=== PATIENT | male | born 1980 | race Caucasian/White ===

== ENCOUNTER 2017-09-09 13:04 | Observation (INO) ==
[2017-09-09 13:55] LABS: Basophils % 0.2 %; Eosinophils # 0.2 K/mcL (0.0-0.6); Eosinophils % 1.7 %; Hematocrit 39.3 % (37.5-50.1); Hemoglobin 12.6 g/dL (12.9-16.9); Immature Granulocytes % 0.3 % (0-4); Lymphocytes # 2.1 K/mcL (0.6-4.6); Lymphocytes % 22.8 %; Mean Corpuscular HGB Conc 32.1 g/dL (31.6-35.5); Mean Corpuscular Hemoglobin 29.4 pg (28.0-33.3); Mean Corpuscular Volume 91.8 fL (83.0-100.0); Mean Platelet Volume 11.1 fL (9.4-12.4); Monocytes # 0.8 K/mcL (0.0-1.3); Monocytes % 8.5 %; Neutrophils # 6.2 K/mcL (1.6-8.9); Platelet Count 234 K/mcL (140-400); Red Blood Count 4.28 M/mcL (4.19-5.50); Red Cell Distribution Width 13.2 % (11.5-14.5); Segmented Neutrophils % 66.5 %
[2017-09-09 14:11] LABS: Alanine Aminotransferase 20 Units/L (0-55); Albumin 3.8 g/dL (3.5-5.0); Albumin/Globulin Ratio 1.1 (1.1-2.2); Alkaline Phosphatase 79 Units/L (38-126); Aspartate Amino Transferase 18 Units/L (5-34); BUN/Creatinine Ratio 26 (6-26); Bilirubin,Direct 0.1 mg/dL (0.0-0.5); Bilirubin,Indirect 0.3 mg/dL (0.0-1.2); Bilirubin,Total 0.4 mg/dL (0.2-1.2); Blood Urea Nitrogen 19 mg/dL (8-26); Calcium 9.3 mg/dL (8.6-10.8); Carbon Dioxide 32 mEq/L (19-29); Chloride 98 mEq/L (98-109); Globulin 3.6 g/dL (2.4-3.5); Glucose 102 mg/dL (70-99); Lipase < 10 Units/L (8-78); Osmolality,Calculated 286 (280-300); Potassium 4.1 mEq/L (3.5-4.5); Sodium 137 mEq/L (136-145); Total Protein 7.4 g/dL (6.0-8.3); eGFR For African Americans > 60 (> 60); eGFR For Non-African Americans > 60 (> 60)
[2017-09-09 15:23] LABS: INR 1.1; Prothrombin Time 11.7 Seconds (9.4-12.1)
[2017-09-09] MEDS ORDERED: Pantoprazole 40 MG VIAL IVP ONE (15:24)
--- NOTE | 2017-09-09 15:25 | Emergency Department Note ---
Disposition Clinical Impression: GI bleed Qualifiers: GI bleed type/associated pathology: unspecified gastrointestinal hemorrhage type Qualified Code(s): K92.2 - Gastrointestinal hemorrhage, unspecified Disposition: Admitted As Inpatient Condition: Fair Referrals: NONE,PCP [Primary Care Provider] - Forms: ED Satisfaction Letter Time of Disposition: 17:51 GI Bleed HPI - General Chief complaint: ED GI Bleed Stated complaint: bloody stool/vomit Time Seen by Provider: 09/09/17 15:05 Source: patient Mode of arrival: ambulatory Limitations: no limitations Nursing Notes Reviewed: Yes Vital Signs Reviewed: Yes - History of Present Illness HPI Narrative: 37-year-old male who awoke about 2 AM with the rectal bleeding. He also vomited blood a couple of times. Patient states he has a history of ulcers. Does have chronic back pain however is not on NSAIDs. He denies any liver disease and denies alcohol intake. Pt Subjective Complaint: blood streaked emesis, gross hematochezia Onset (ago): hour(s) Consistency: intermittent Improves with: nothing Worsens with: nothing Associated symptoms: Reports: abdominal pain, vomiting Treatments Prior to Arrival: none - Related Data Home Medications Medication Instructions Recorded Confirmed Gabapentin [Neurontin] 300 mg PO TID 09/09/17 09/09/17 Lisinopril [Zestril] 20 mg PO DAILY 09/09/17 09/09/17 Meloxicam [Meloxicam] 15 mg PO HS PRN 09/09/17 09/09/17 Tizanidine HCl 4 mg PO TID PRN 09/09/17 09/09/17 Tramadol HCl [Ultram] 50 mg PO TID PRN 09/09/17 09/09/17 Allergies Allergy/AdvReac Type Severity Reaction Status Date / Time No Known Allergies Allergy Verified 05/07/15 19:13 All systems ED: reviewed and negative except as stated. Constitutional: Denies: fever, chills, weakness, weight change Eyes: Denies: eye pain, eye discharge, vision change ENT ED: Denies: ear pain, throat pain, dental pain, hearing loss, epistaxis, congestion, dysphagia Cardiovascular: Denies: chest pain, palpitations, dyspnea on exertion, edema, syncope Respiratory: Denies: cough, dyspnea, wheezes, hemoptysis, stridor Gastrointestinal: Reports: abdominal pain, hematemesis, hematochezia. Denies: nausea, vomiting, diarrhea, constipation, melena Genitourinary: Denies: urgency, dysuria, frequency, hematuria Musculoskeletal: Denies: back pain, neck pain, arthralgia, myalgia Integumentary: Denies: rash, abrasion, lesions Neurological: Denies: headache, weakness, numbness, paresthesias, confusion, abnormal gait, vertigo Psychiatric: Denies: anxiety, depression, suicidal thoughts, homicidal thoughts , auditory hallucinations, visual hallucinations Endocrine: Denies: fatigue Hematological/Lymphatic: Denies: easy bleeding, easy bruising Allergic/Immunologic: Denies: facial swelling, urticaria Past Medical History - Past Medical History Medical history: Reports: hypertension Psychiatric history: Reports: anxiety - Social History Smoking Status: Never smoker Alcohol use: Reports: occasionally Drug use: Reports: other Physical Exam - General Limitations: no limitations General appearance: alert, in no apparent distress - Head Head exam: atraumatic, normocephalic, normal inspection - Eye Eye exam: Present: normal appearance - ENT ENT exam: normal exam, normal oropharynx, mucous membranes moist - Neck Neck exam: Present: normal inspection, full ROM, trachea midline - Chest Chest inspection: Present: normal inspection, symmetric chest wall rise - Respiratory Respiratory exam: Present: normal lung sounds bilaterally - Cardiovascular Cardiovascular exam: Present: regular rate, normal rhythm, normal heart sounds - Abdominal Exam Abdominal exam: Present: soft, tenderness. 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 Absent: tenderness, pedal edema - Expanded Lower Extremity Exam Neurovascular/Tendon exam: Absent: motor deficit, sensory deficit, tendon deficit Gait: observed and normal - Back Exam Back exam: Present: normal inspection, full ROM. Absent: tenderness - Neurological Exam Neurological exam: Present: alert, oriented X3 - Psychiatric Psychiatric exam: Present: normal affect, normal mood - Skin Skin exam: Present: warm, dry, intact, normal color Course - Reevaluation(s) Reevaluation #1: 37-year-old with gross rectal bleeding says he was vomiting blood. Has had ulcers in the past. Time: 17:49 - Consultations Consultation #1: Stressed with Sourav HODGE, ADMIT. Time: 17:48 Consultation #2: Discussed with the GI Dr. Villanueva will see the patient in consultation. Time: 17:50 Vital Signs Temperature 97.5 F L 09/09/17 13:14 Pulse Rate 107 09/09/17 13:14 Respiratory Rate 18 09/09/17 13:14 Blood Pressure 158/114 09/09/17 13:14 O2 Sat by Pulse Oximetry 99 09/09/17 13:14 Temperature 97.5 F L 09/09/17 13:14 Pulse Rate 107 09/09/17 13:14 Respiratory Rate 18 09/09/17 13:14 Blood Pressure 158/114 09/09/17 13:14 O2 Sat by Pulse Oximetry 99 09/09/17 13:14 Oxygen Delivery Oxygen Delivery Room Air GI Bleed - Lab Data Lab results reviewed: Yes I reviewed the patient's lab results. Result diagrams: 09/09/17 13:41 09/09/17 13:41 Lab Results 09/09/17 09/09/17 09/09/17 Range/Units 13:41 13:41 13:41 WBC 9.3 (4.3-11.1) K/mcL RBC 4.28 (4.19-5.50) M/mcL Hgb 12.6 L (12.9-16.9) g/dL Hct 39.3 (37.5-50.1) % MCV 91.8 (83.0-100.0) fL MCH 29.4 (28.0-33.3) pg MCHC 32.1 (31.6-35.5) g/dL RDW 13.2 (11.5-14.5) % Plt Count 234 (140-400) K/mcL MPV 11.1 (9.4-12.4) fL Immature Gran % 0.3 (0-4) % Seg Neutrophils % 66.5 % Lymphocytes % 22.8 % Monocytes % 8.5 % Eosinophils % 1.7 % Basophils % 0.2 % Neutrophils # 6.2 (1.6-8.9) K/mcL Lymphocytes # 2.1 (0.6-4.6) K/mcL Monocytes # 0.8 (0.0-1.3) K/mcL Eosinophils # 0.2 (0.0-0.6) K/mcL Basophils # 0.0 (0.0-0.2) K/mcL ESR (0-10) mm/hr PT (9.4-12.1) Seconds INR APTT (26.0-36.0) Seconds Sodium 137 (136-145) mEq/L Potassium 4.1 (3.5-4.5) mEq/L Chloride 98 (98-109) mEq/L Carbon Dioxide 32 H (19-29) mEq/L BUN 19 (8-26) mg/dL Creatinine 0.73 (0.72-1.25) mg/dL Est GFR ( Amer) > 60 (> 60) Est GFR (Non-Af Amer) > 60 (> 60) BUN/Creatinine Ratio 26 (6-26) Glucose 102 H (70-99) mg/dL Calculated Osmolality 286 (280-300) Calcium 9.3 (8.6-10.8) mg/dL Total Bilirubin 0.4 (0.2-1.2) mg/dL Direct Bilirubin 0.1 (0.0-0.5) mg/dL Indirect Bilirubin 0.3 (0.0-1.2) mg/dL AST 18 (5-34) Units/L ALT 20 (0-55) Units/L Alkaline Phosphatase 79 (38-126) Units/L Troponin I (0-0.03) ng/mL Serum Total Protein 7.4 (6.0-8.3) g/dL Albumin 3.8 (3.5-5.0) g/dL Globulin 3.6 H (2.4-3.5) g/dL Albumin/Globulin Ratio 1.1 (1.1-2.2) Lipase < 10 (8-78) Units/L Stool Occult Blood (Negative) Blood Type O POSITIVE Antibody Screen NEGATIVE 09/09/17 09/09/17 09/09/17 Range/Units 13:41 13:41 13:41 WBC (4.3-11.1) K/mcL RBC (4.19-5.50) M/mcL Hgb (12.9-16.9) g/dL Hct (37.5-50.1) % MCV (83.0-100.0) fL MCH (28.0-33.3) pg MCHC (31.6-35.5) g/dL RDW (11.5-14.5) % Plt Count (140-400) K/mcL MPV (9.4-12.4) fL Immature Gran % (0-4) % Seg Neutrophils % % Lymphocytes % % Monocytes % % Eosinophils % % Basophils % % Neutrophils # (1.6-8.9) K/mcL Lymphocytes # (0.6-4.6) K/mcL Monocytes # (0.0-1.3) K/mcL Eosinophils # (0.0-0.6) K/mcL Basophils # (0.0-0.2) K/mcL ESR 28 H (0-10) mm/hr PT 11.7 (9.4-12.1) Seconds INR 1.1 APTT 28.7 (26.0-36.0) Seconds Sodium (136-145) mEq/L Potassium (3.5-4.5) mEq/L Chloride (98-109) mEq/L Carbon Dioxide (19-29) mEq/L BUN (8-26) mg/dL Creatinine (0.72-1.25) mg/dL Est GFR ( Amer) (> 60) Est GFR (Non-Af Amer) (> 60) BUN/Creatinine Ratio (6-26) Glucose (70-99) mg/dL Calculated Osmolality (280-300) Calcium (8.6-10.8) mg/dL Total Bilirubin (0.2-1.2) mg/dL Direct Bilirubin (0.0-0.5) mg/dL Indirect Bilirubin (0.0-1.2) mg/dL AST (5-34) Units/L ALT (0-55) Units/L Alkaline Phosphatase (38-126) Units/L Troponin I 0.00 (0-0.03) ng/mL Serum Total Protein (6.0-8.3) g/dL Albumin (3.5-5.0) g/dL Globulin (2.4-3.5) g/dL Albumin/Globulin Ratio (1.1-2.2) Lipase (8-78) Units/L Stool Occult Blood (Negative) Blood Type Antibody Screen 09/09/17 Range/Units 15:20 WBC (4.3-11.1) K/mcL RBC (4.19-5.50) M/mcL Hgb (12.9-16.9) g/dL Hct (37.5-50.1) % MCV (83.0-100.0) fL MCH (28.0-33.3) pg MCHC (31.6-35.5) g/dL RDW (11.5-14.5) % Plt Count (140-400) K/mcL MPV (9.4-12.4) fL Immature Gran % (0-4) % Seg Neutrophils % % Lymphocytes % % Monocytes % % Eosinophils % % Basophils % % Neutrophils # (1.6-8.9) K/mcL Lymphocytes # (0.6-4.6) K/mcL Monocytes # (0.0-1.3) K/mcL Eosinophils # (0.0-0.6) K/mcL Basophils # (0.0-0.2) K/mcL ESR (0-10) mm/hr PT (9.4-12.1) Seconds INR APTT (26.0-36.0) Seconds Sodium (136-145) mEq/L Potassium (3.5-4.5) mEq/L Chloride (98-109) mEq/L Carbon Dioxide (19-29) mEq/L BUN (8-26) mg/dL Creatinine (0.72-1.25) mg/dL Est GFR ( Amer) (> 60) Est GFR (Non-Af Amer) (> 60) BUN/Creatinine Ratio (6-26) Glucose (70-99) mg/dL Calculated Osmolality (280-300) Calcium (8.6-10.8) mg/dL Total Bilirubin (0.2-1.2) mg/dL Direct Bilirubin (0.0-0.5) mg/dL Indirect Bilirubin (0.0-1.2) mg/dL AST (5-34) Units/L ALT (0-55) Units/L Alkaline Phosphatase (38-126) Units/L Troponin I (0-0.03) ng/mL Serum Total Protein (6.0-8.3) g/dL Albumin (3.5-5.0) g/dL Globulin (2.4-3.5) g/dL Albumin/Globulin Ratio (1.1-2.2) Lipase (8-78) Units/L Stool Occult Blood Positive A (Negative) Blood Type Antibody Screen - Radiology Data Radiology results reviewed: Yes I reviewed the patient's radiology results. Abdomen/Pelvis CT 09/09/17 15:22 IMPRESSION: No acute abnormality. Degenerative change lower lumbar spine L4-5 and L5-S1 with mild to moderate effect upon the right L4 and L5 foramen respectively. D/ / Dwayne Le MD / Dwayne Le MD Interpreting Provider: Dwayne Le MD
[2017-09-09 15:26] LABS: Activated Partial Thrombo Time 28.7 Seconds (26.0-36.0)
[2017-09-09] MEDS ORDERED: Aspirin 81 MG TAB.CHEW ONE (15:29)
[2017-09-09] MEDS ORDERED: *HR* HYDROmorphone (PF) 1 MG/ML SYRINGE IVP ONE (16:13)
[2017-09-09] MEDS ORDERED: Ondansetron 4 MG/2 ML VIAL IVP ONE (16:13)
[2017-09-09] MEDS ORDERED: Acetaminophen 325 MG TABLET PO PRN (23:13)
[2017-09-09] MEDS ORDERED: Naloxone 0.4 MG/ML INJ IVP PRN (23:13)
--- NOTE | 2017-09-09 23:23 | Internal Med History&Physical ---
Date of Encounter: 09/10/17 Time of Encounter: 23:22 Assessment and Plan (1) GI bleed Current visit: Yes Status: Acute Patient has presented with hematochezia and hematemesis, he has history of peptic ulcer disease, currently he uses heavy dose of NSAIDs. Nothing by mouth, H&H every 6, CBC CMP in the morning, GI consult IV fluids, Protonix drip, Concerned if recent use of NSAIDs and history of peptic ulcer has caused actively bleeding ulcer. Qualifiers: GI bleed type/associated pathology: unspecified gastrointestinal hemorrhage type Qualified Code(s): K92.2 - Gastrointestinal hemorrhage, unspecified (2) Peptic ulcer disease Current visit: Yes Status: Acute As above (3) Chronic pain Current visit: Yes Status: Acute As above Qualifiers: Chronic pain type: chronic pain syndrome Qualified Code(s): G89.4 - Chronic pain syndrome (4) Hypertension Current visit: Yes Status: Acute For now blood pressure medicines on hold Qualifiers: Hypertension type: essential hypertension Qualified Code(s): I10 - Essential (primary) hypertension Internal Medicine - H&P: HPI Chief complaint: Hematemesis hematochezia Admitted From: Home Plans for Post Hospital Care: Home History of present illness: Patient was seen on September 09. Mr. Karimi is a 37 year old male past medical history significant for chronic back pain and hypertension. He has history of peptic ulcer disease. His monthly was prescribed 800 mg Motrin 3 times a day most of which she has finished but recently he is not taking any NSAIDs. He uses meloxicam and Ultram for pain.. He has come in with the hematemesis and hematochezia with abdominal discomfort. He had single episode of blood-tinged vomiting as well as to lose bowel movement with blood in it. He denies any significant abdominal pain nausea or chest pain dyspnea dizziness syncope or any other symptoms. Past Med Surg Social Fam HX - Past Medical History Medical history: hypertension Psychiatric history: anxiety - Social History Smoking Status: Never smoker Alcohol use: occasionally Drug use: other - Family History Mother Living Status: Age at : 28 Cause of : suicide Father Living Status: Age at : 66 Cause of : unknown Internal Medicine - H&P: Meds Gabapentin [Neurontin] 300 mg PO TID 09/09/17 [History] Lisinopril [Zestril] 20 mg PO DAILY 09/09/17 [History] Meloxicam [Meloxicam] 15 mg PO HS PRN 09/09/17 [History] Tizanidine HCl 4 mg PO TID PRN 09/09/17 [History] Tramadol HCl [Ultram] 50 mg PO TID PRN 09/09/17 [History] 3 Allergy/AdvReac Type Severity Reaction Status Date / Time No Known Allergies Allergy Verified 05/07/15 19:13 All Systems PM: A 10-system review of systems was performed and is negative for pertinent findings except as documented above in the HPI. - Constitutional Constitutional: no chills, no fever(s), no night sweats - EENT Eyes: no change in vision, no discharge, no pain, no photophobia Ears: no ear discharge, no ear pain, no tinnitus Nose, mouth and throat: no dysphagia, no nasal discharge, no neck pain, no sore throat - Cardiovascular Cardiovascular ROS IM: no chest pain, no diaphoresis, no dyspnea, no lightheadedness, no palpitations, no syncope - Respiratory Respiratory: no cough, no dyspnea, no wheezing, no excessive phlegm production - Gastrointestinal Gastrointestinal: abdominal pain, diarrhea, hematemesis, hematochezia, nausea, vomiting, no melena - Musculoskeletal Musculoskeletal ROS IM: no numbness, no tingling - Integumentary Integumentary IM: no rash, no unusual bruising - Neurological Neurological ROS: no confusion, no convulsions, no focal weakness, no numbness, no tingling, no tremor(s) - Hematologic/Lymphatic Hematologic/Lymphatic: no easy bruising - Constitutional Vitals: Temp Pulse Resp BP Pulse Ox 97.7 F 87 14 141/104 94 09/09/17 19:41 09/09/17 19:41 09/09/17 19:44 09/09/17 19:44 09/09/17 19:41 General appearance: Present: A&O X 3, no acute distress, answers questions appropriately - Head Head exam: Present: atraumatic, normocephalic - Eye Eye exam: Present: PERRL, conjuntiva pink, sclera anicteric Pupils: Present: PERRL - Neck Neck exam general surgery: Present: supple, trachea midline. Absent: lymphadenopathy - Respiratory Respiratory exam: Present: CTAB. Absent: accessory muscle use, rales, rhonchi, wheezes - Cardiovascular Cardiovascular exam: Present: RRR, +S1, +S2. Absent: diastolic murmur, gallop, rubs, systolic murmur - GI/Abdominal GI/Abdominal exam: Present: normal bowel sounds, soft, no peritoneal signs. Absent: distended, tenderness - Extremities Exam Extremities exam: Present: warm, radial pulses palpable and symmetrical. Absent : calf tenderness, cyanotic, pedal edema - Neurological Exam Neurological exam: Present: CN II-XII intact, oriented X3, no focal deficits. Absent: pronater drift, facial droop, speech deficit - Skin Skin exam: Present: dry, intact Internal Med - H&P Results - Labs CBC & Chem 7: 09/10/17 00:13 09/09/17 13:41
[2017-09-10] MEDS: 0.9 % Sodium Chloride 1,000 ML IVC SCH ×2 (00:42→10:32)
[2017-09-10] MEDS: Pantoprazole 80 MG in 0.9 % Sodium Chloride 250 ML IVC SCH ×3 (00:43→22:47)
[2017-09-10] MEDS: *HR* Morphine 2 MG/ML SYRINGE IVP PRN ×3 (00:49→22:30)
[2017-09-10] MEDS: Ondansetron 4 MG/2 ML VIAL IVP SCH ×2 (00:55→06:16)
[2017-09-10] MEDS: Gabapentin 300 MG CAPSULE PO SCH ×4 (00:55→20:30)
[2017-09-10 01:02] LABS: Hematocrit 37.8 % (37.5-50.1); Hemoglobin 12.4 g/dL (12.9-16.9)
[2017-09-10 06:54] LABS: Hematocrit 34.4 % (37.5-50.1)
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
[2017-09-10] MEDS ORDERED: Ondansetron 4 MG/2 ML VIAL IVP PRN (08:49)
--- NOTE | 2017-09-10 09:47 | Internal Med Progress Note ---
Date of Encounter: 09/10/17 Time of Encounter: 09:45 - Assessment and plan (1) GI bleed Current Visit: Yes Status: Acute Assessment and plan: presented with hematemesis and melena; Hb stable; continue to monitor closely; IV hydration, bowel rest; GI consulted, plan for EGD today; patient has h/o- NSAID use for chronic back pain; continue IV PPI drip; hold NSAIDs and ASA; Qualifiers: GI bleed type/associated pathology: gastrointestinal hemorrhage with hematemesis Qualified Code(s): K92.0 - Hematemesis (2) Tobacco abuse Current Visit: Yes Status: Chronic Assessment and plan: Smoking cessation advised; (3) Chronic pain Current Visit: Yes Status: Chronic Assessment and plan: on PRN IV Morphine; will resume home meds when tolerates oral diet; Qualifiers: Chronic pain type: chronic pain syndrome Qualified Code(s): G89.4 - Chronic pain syndrome (4) Hypertension Current Visit: Yes Status: Chronic Assessment and plan: BP well-controlled; continue home meds as needed; Qualifiers: Hypertension type: essential hypertension Qualified Code(s): I10 - Essential (primary) hypertension - Subjective Interval history: Reports feeling better; resolved hematemesis, hematochezia at this time; did vomit blood and have 2-3 dark purple/maroon bowel movements prior to presentation; takes NSAIDs for chronic back pain; and follows with pain management clinic; - Constitutional Vitals: Temp Pulse Resp BP Pulse Ox 97.8 F 83 16 103/61 94 09/10/17 07:02 09/10/17 07:02 09/10/17 07:02 09/10/17 07:02 09/10/17 07:02 General appearance: Present: A&O X 3, no acute distress, answers questions appropriately - Respiratory Respiratory exam: Present: CTAB. Absent: accessory muscle use, rales, rhonchi, wheezes - Cardiovascular Cardiovascular exam: Present: RRR, +S1, +S2. Absent: diastolic murmur, gallop, rubs, systolic murmur - GI/Abdominal GI/Abdominal exam: Present: normal bowel sounds, soft, no peritoneal signs. Absent: distended, tenderness Internal Medicine: Result - Labs CBC & Chem 7: 09/10/17 11:16 09/09/17 13:41 Labs: Short CBC 09/10/17 09/10/17 Range/Units 00:13 05:33 Hgb 12.4 L 11.0 L (12.9-16.9) g/dL Hct 37.8 34.4 L (37.5-50.1) % - ABG Interpretation ABG results: PT/INR, D-dimer PT 11.7 Seconds (9.4-12.1) 09/09/17 13:41 - VTE Documentation of Mechanical Device: Graduated compression elastic hosiery Consult Discharge Plan - Plan Referrals: NONE,PCP [Primary Care Provider] -
--- NOTE | 2017-09-10 10:46 | Anesthesia Evaluation PreOp ---
Date of Encounter: 09/10/17 Time of Encounter: 13:32 - Past History Planned Operation: EGD Cardiac History: HTN Pulmonary History: Denies Any Significant HX FINANCE DIRECTOR History: Denies Any Significant HX Other Medical History: Other (PUD,) Anesthesia History: Past Anesthesia (none) Alcohol Use: occasionally Drug use: other Medications and Allergies Gabapentin [Neurontin] 300 mg PO TID 09/09/17 [History] Lisinopril [Zestril] 20 mg PO DAILY 09/09/17 [History] Meloxicam [Meloxicam] 15 mg PO HS PRN 09/09/17 [History] Tizanidine HCl 4 mg PO TID PRN 09/09/17 [History] Tramadol HCl [Ultram] 50 mg PO TID PRN 09/09/17 [History] 3 Allergy/AdvReac Type Severity Reaction Status Date / Time No Known Allergies Allergy Verified 05/07/15 19:13 - Meds/Allergy Pre-op Review Medications Reviewed: Yes Allergies Reviewed: Yes Beta Blockers on Current Med List: No Anesthesia Results - Labs 09/10/17 11:16 09/09/17 13:41 Anesthesia Exam Selected Entries 09/10/17 07:02 09/10/17 08:45 Temperature 97.8 F Pulse Rate 83 Respiratory Rate 16 Blood Pressure 103/61 O2 Sat by Pulse Oximetry 94 Oxygen Delivery Method Room Air Weight: 91kg - HEENT Pupil (Motor): EOMI Mallampati: II Teeth: Edentulous Oral Opening: Less than or equal to 3 - FINANCE DIRECTOR LOC: Oriented FINANCE DIRECTOR Motor: Normal RUE, Normal LUE, Normal RLE, Normal LLE, Normal Face FINANCE DIRECTOR Sensory: Normal: RUE, LUE, RLE, LLE, Face - Cardiac Rhythm: Regular Murmur: None - Pulmonary Breath Sounds: bilateral Clear Respiratory Effort: Symmetrical Anesthesia Assess/Plan ASA Score: 2 Modified Allyssa Scale for Level of Consciousness: Cooperative, oriented, and tranquil Anesthetic Plan: MAC Monitoring Plan: Standard Monitors Recovery Plan: Other (discussed MAC, agrees to proceed)
[2017-09-10 11:34] LABS: Hematocrit 34.1 % (37.5-50.1); Hemoglobin 11.3 g/dL (12.9-16.9)
[2017-09-10] MEDS ORDERED: Tetracaine/Benzocaine/Butamben 200MG/SPRAY (100SPY/BOT) MM ONE (13:37)
[2017-09-10] MEDS ORDERED: *HR* Propofol 200 MG/20 ML VIAL IVP ONE (13:53)
[2017-09-10] MEDS ORDERED: Lidocaine -MPF 2% 2 ML VIAL ONE (13:53)
--- NOTE | 2017-09-10 14:03 | Anesthesia Evaluation Post Op ---
Date of Encounter: 09/10/17 Time of Encounter: 14:01 - Vital Signs Vital Signs: 103/65, HR 99, 94%, 98.6F, RR16 - Lungs Lungs: Clear Ascult./Percussion - Airway Airway: Non-obstructed - Cardiovascular Regular Rate - Mental Status Mental Status: Alert & Oriented, Answers Appropriately - Pain Pain Scale: 0 Pain Scale used: Numeric (1 - 10) - Nausea Vomiting Nausea Vomiting: Not Present - Hydration Hydration: NPO, Has not voided - Discharge PostOp Status: Transfer Patient to floor
[2017-09-10] MEDS ORDERED: tiZANidine 4 MG TABLET PO PRN (16:11)
[2017-09-10] MEDS: traMADol 50 MG TABLET PO PRN (17:10)
[2017-09-10 17:24] LABS: Hematocrit 32.8 % (37.5-50.1); Hemoglobin 10.8 g/dL (12.9-16.9)
--- NOTE | 2017-09-10 17:47 | Electrocardiograph Report ---
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
[2017-09-11 00:56] LABS: Basophils % 0.8 %; Eosinophils # 0.3 K/mcL (0.0-0.6); Eosinophils % 5.8 %; Hematocrit 32.5 % (37.5-50.1); Hemoglobin 10.4 g/dL (12.9-16.9); Immature Granulocytes % 0.4 % (0-4); Lymphocytes # 1.9 K/mcL (0.6-4.6); Mean Corpuscular Hemoglobin 29.4 pg (28.0-33.3); Mean Corpuscular Volume 91.8 fL (83.0-100.0); Mean Platelet Volume 11.2 fL (9.4-12.4); Monocytes # 0.4 K/mcL (0.0-1.3); Monocytes % 8.6 %; Neutrophils # 2.3 K/mcL (1.6-8.9); Platelet Count 172 K/mcL (140-400); Red Blood Count 3.54 M/mcL (4.19-5.50); Red Cell Distribution Width 12.8 % (11.5-14.5); Segmented Neutrophils % 45.4 %
[2017-09-11 01:12] LABS: BUN/Creatinine Ratio 11 (6-26); Blood Urea Nitrogen 9 mg/dL (8-26); Calcium 8.6 mg/dL (8.6-10.8); Carbon Dioxide 31 mEq/L (19-29); Chloride 101 mEq/L (98-109); Glucose 102 mg/dL (70-99); Osmolality,Calculated 287 (280-300); Potassium 4.2 mEq/L (3.5-4.5); Sodium 139 mEq/L (136-145); eGFR For African Americans > 60 (> 60); eGFR For Non-African Americans > 60 (> 60)
[2017-09-11 05:45] LABS: Hematocrit 34.4 % (37.5-50.1); Hemoglobin 10.9 g/dL (12.9-16.9)
[2017-09-11] MEDS: Gabapentin 300 MG CAPSULE PO SCH (07:56)
[2017-09-11] MEDS: traMADol 50 MG TABLET PO PRN (07:56)
[2017-09-11] MEDS ORDERED: Lisinopril 20 MG TABLET PO SCH (09:00)
[2017-09-11] MEDS: *HR* Morphine 2 MG/ML SYRINGE IVP PRN (09:32)
--- NOTE | 2017-09-11 10:22 | Discharge Summary ---
Date of Encounter: 09/11/17 Time of Encounter: 09:20 - Discharge Diagnosis (1) GI bleed Priority: Primary Status: Acute Qualifiers: GI bleed type/associated pathology: gastrointestinal hemorrhage with hematemesis Qualified Code(s): K92.0 - Hematemesis (2) Tobacco abuse Priority: Secondary Status: Chronic (3) Chronic pain Priority: Secondary Status: Chronic Qualifiers: Chronic pain type: chronic pain syndrome Qualified Code(s): G89.4 - Chronic pain syndrome (4) Hypertension Priority: Secondary Status: Chronic Qualifiers: Hypertension type: essential hypertension Qualified Code(s): I10 - Essential (primary) hypertension - Discharge Medications Prescriptions: Omeprazole [PriLOSEC] 40 mg PO BIDAC #60 capsule. Sucralfate [Carafate] 1 gm PO ACHS 30 Days mls Home Medications: Gabapentin [Neurontin] 300 mg PO TID 09/09/17 [History] Lisinopril [Zestril] 20 mg PO DAILY 09/09/17 [History] Tizanidine HCl 4 mg PO TID PRN 09/09/17 [History] Tramadol HCl [Ultram] 50 mg PO TID PRN 09/09/17 [History] Omeprazole [PriLOSEC] 40 mg PO BIDAC #60 capsule. 09/11/17 [Rx] Sucralfate [Carafate] 1 gm PO ACHS 30 Days mls 09/11/17 [Rx] Allergies/Adverse Reactions: 3 Allergy/AdvReac Type Severity Reaction Status Date / Time No Known Allergies Allergy Verified 05/07/15 19:13 Date of admission: 09/09/17 23:13 Primary care physician: PCP NONE Discharging clinician: Kayla Hayden Anticipated date of discharge: 09/11/17 - Patient Status Disposition: Home, Self-Care Condition: Good Functional capacity at discharge: independent ambulation Overall status at discharge: patient is progressing back to baseline - Discharge Instructions Follow Up With: Meghann Person CNP [Advanced Practice Nurse] - 09/18/17 2:00 pm Additional Instructions: F/up with PCP in 1-2 weeks F/up with /JORGE ALBERTO in 3-4 weeks - Diet and Activity Activity: resume usual activities as tolerated Diet: advance to your usual diet (bland diet), low salt diet Hospital course: Mr. Karimi is a 37 year old male with the above medical problems who was admitted with complaints of hematemesis and melena. Hemoglobin was monitored closely, he was kept nothing by mouth and started on IV hydration and IV PPI drip. He was noted to be on NSAIDs for chronic back pain, which were held on admission. GI was consulted and patient underwent EGD, which showed reflux esophagitis, chronic gastritis and multiple nonbleeding duodenal ulcers. Patient had a 1.5 g drop in hemoglobin but continues to remain stable at this time with no active bleeding. He is cleared by GI for discharge home with outpatient follow-up. He is tolerating oral diet and is otherwise medically stable. He is advised regarding smoking cessation and advised against NSAID use to prevent further bleeding episodes. Time spent discussing smoking cessation with patient: 3 to 10 minutes - Time Spent with Patient Total time spent providing and/or coordinating discharge services: Greater than 30 minutes (40 min) - Constitutional Vitals: Temp Pulse Resp BP Pulse Ox 97.6 F 94 16 135/66 95 09/11/17 08:04 09/11/17 08:04 09/11/17 08:04 09/11/17 08:04 09/11/17 08:04 General appearance: Present: A&O X 3, answers questions appropriately - Respiratory Respiratory exam: Present: CTAB. Absent: accessory muscle use, rales, rhonchi, wheezes - VTE Documentation of Mechanical Device: Graduated compression elastic hosiery
[2017-09-11 10:24] VITALS: BP 118/72
[2017-09-11] MEDS ORDERED: FLUARIX QUAD 2017-18 36MOS UP/PF 0.5 ML SYRINGE IM ONE (10:43)
== END 2017-09-11 12:28 | disposition home or self-care (01) ==
LOC: 3ANU 13:04 → EMEROO 13:04 → 3ANU 19:45 → SUATTDRO 23:13
PROVIDERS: ADMIT Nurse Practitioner Family; ATTEND Internal Medicine
PROC: ENDOEBX (2017-09-10 14:30)